=== PATIENT | female | born 1950 | race Caucasian/White ===

== ENCOUNTER 2022-08-08 17:01 | Inpatient (IN) | payer MEDICARE, OTHER ==
[2022-08-08] MEDS ORDERED: SODIUM CHLORIDE 0.9% 1,000 ML IV STA (17:12)
--- NOTE | 2022-08-08 17:15 | ED Physician Documentation ---
History of Present Illness - Stated complaint Stated Complaint: DROOPY/SLUMPED OVER - History obtained from History obtained from: Patient - Additonal information Additional information: Otherwise healthy 71-year-old woman has been feeling a little weak and dizzy since Friday morning, 2 days ago. Today she went to work and had a presyncopal episode. She notes that it gets worse if she is upright. No chest pain or trouble breathing. She has had some dark stools. No abdominal pain. For paramedics prehospital her blood pressure dropped down to 85/60 with orthostatic vital signs. Review of Systems Ten Systems: 10 systems reviewed and negative Constitutional: reports: Fatigue Cardiac: denies: Chest pain / pressure, Palpitations Respiratory: denies: Dyspnea, Cough GI: reports: Abdominal Pain. denies: Nausea, Vomiting PD PAST MEDICAL HISTORY - Past Medical History GI: GERD - Past Surgical History Past Surgical History: Yes /WIRE [employer]TER: Hysterectomy HEENT: Tonsil/Adenoidectomy - Present Medications Home Medications: Ambulatory Orders Medication Instructions Recorded Confirmed Esomeprazole Magnesium [Nexium] 0 mg PO DAILY 02/28/14 02/28/14 HYDROcod/ACETAM 5/325 [Vicodin 1 - 2 ea PO Q6H PRN #30 tablet 02/28/14 5/325] Zolmitriptan [Zomig] 2 mg PO Q2HR PRN 02/28/14 02/28/14 - Allergies Allergies/Adverse Reactions: Allergies Allergy/AdvReac Type Severity Reaction Status Date / Time No Known Drug Allergies Allergy Verified 02/28/14 16:36 - Social History Does the pt smoke?: No Smoking Status: Never smoker Does the pt drink ETOH?: No PD ED PE NORMAL - Vitals Vital signs reviewed: Yes - General General: Alert and oriented X 3, No acute distress - HEENT HEENT: PERRL, EOMI - Neck Neck: Supple, no meningeal sign, No bony TTP - Cardiac Cardiac: RRR, No murmur - Respiratory Respiratory: No respiratory distress, Clear bilaterally - Abdomen Abdomen: Normal bowel sounds, Soft, Non tender - Rectal Rectal: Other (dark stool sent for guaiac) - Back Back: No CVA TTP, No spinal TTP - Derm Derm: Normal color, Warm and dry - Extremities Extremities: No edema, No calf tenderness / cord - Neuro Neuro: Alert and oriented X 3, Normal speech Results - Vitals Vitals: Vital Signs - 24 hr 08/08/22 17:18 Temperature 36.9 C Heart Rate 108 H Respiratory 18 Rate Blood Pressure 129/77 O2 Saturation 99 Oxygen O2 Source Room air - EKG (time done) 1714 Rate: Rate (enter#) (104) Rhythm: Sinus tachycardia [place]: Normal Intervals: Normal ND QRS: Normal Ischemia: Non specific changes. No: ST depression - Labs Labs: Microbiology 08/08/22 17:55 Occult Blood - Final Stool Laboratory Tests 08/08/22 08/08/22 08/08/22 17:29 17:29 17:29 WBC 9.6 RBC 3.15 L Hgb 8.8 L Hct 27.7 L MCV 87.9 MCH 27.9 MCHC 31.8 L RDW 13.2 Plt Count 322 MPV 9.7 Neut # (Auto) 7.0 H Lymph # (Auto) 1.9 [place] # (Auto) 0.6 Eos # (Auto) 0.0 Baso # (Auto) 0.1 Absolute Nucleated RBC 0.00 Nucleated RBC % 0.0 PT 11.6 INR 1.0 Sodium Potassium Chloride Carbon Dioxide Anion Gap BUN Creatinine Estimated GFR (MDRD) Glucose Calcium Total Bilirubin AST ALT Alkaline Phosphatase Total Protein Albumin Globulin Albumin/Globulin Ratio Lipase Blood Type A NEGATIVE Blood Type Recheck Antibody Screen NEGATIVE 08/08/22 08/08/22 17:29 17:45 WBC RBC Hgb Hct MCV MCH MCHC RDW Plt Count MPV Neut # (Auto) Lymph # (Auto) [place] # (Auto) Eos # (Auto) Baso # (Auto) Absolute Nucleated RBC Nucleated RBC % PT INR Sodium 139 Potassium 4.1 Chloride 103 Carbon Dioxide 27 Anion Gap 9.0 BUN 38 H Creatinine 0.7 Estimated GFR (MDRD) 82 L Glucose 119 H Calcium 8.9 Total Bilirubin 0.6 AST 23 ALT 19 Alkaline Phosphatase 124 H Total Protein 6.0 L Albumin 3.2 Globulin 2.8 Albumin/Globulin Ratio 1.1 Lipase 34 Blood Type Blood Type Recheck A NEGATIVE Antibody Screen PD MEDICAL DECISION MAKING - ED course ED course: 71-year-old woman presents with acute presyncope and 2 days of symptoms of weakness. Found to be anemic and guaiac positive with soft blood pressure prior to arrival and borderline tachycardia. She is well-appearing here. We discussed this further. She has a long history of NSAID use and has required treatment for ulcer disease in the past and a partial gastrectomy for gastric outlet obstruction. Discussed case by phone with Dr. Jones, our on-call surgeon who will defer the case to Dr. Garcia who is on-call tomorrow. Will admit to the hospitalist after 7 PM shift change. Departure - Departure Disposition: ED Place in Observation Clinical Impression: Pre-syncope GI bleed Qualifiers: GI bleed type/associated pathology: unspecified gastrointestinal hemorrhage type Qualified Code(s): K92.2 - Gastrointestinal hemorrhage, unspecified Condition: Serious
[2022-08-08 17:39] LABS: BASOPHILS # (AUTO) 0.1 10^3/uL (0.0-0.1); BASOPHILS % (AUTO) 0.5 %; EOSINOPHILS % (AUTO) 0.4 %; HCT - HEMATOCRIT 27.7 % (37.0-47.0); HGB - HEMOGLOBIN 8.8 g/dL (12.0-16.0); LYMPHOCYTES # (AUTO) 1.9 10^3/uL (1.5-3.5); LYMPHOCYTES % (AUTO) 19.6 %; MEAN CORPUSCULAR HEMOGLOBIN 27.9 pg (27.0-31.0); MEAN CORPUSCULAR HGB CONC 31.8 g/dL (32.0-36.0); MEAN CORPUSCULAR VOLUME 87.9 fL (81.0-99.0); MEAN PLATELET VOLUME 9.7 fL (7.9-10.8); MONOCYTES # (AUTO) 0.6 10^3/uL (0.0-1.0); MONOCYTES % (AUTO) 6.4 %; NEUTROPHILS % (AUTO) 72.9 %; PLT - PLATELET COUNT 322 10^3/uL (130-450); RED BLOOD COUNT 3.15 10^6/uL (4.20-5.40); RED CELL DISTRIBUTION WIDTH 13.2 % (12.0-15.0); WHITE BLOOD COUNT 9.6 x10^3/uL (4.8-10.8)
[2022-08-08 17:45] LABS: PT - PROTHROMBIN TIME 11.6 secs (9.9-12.6)
[2022-08-08 17:52] LABS: ALBUMIN 3.2 g/dL (3.2-5.5); ALBUMIN/GLOBULIN RATIO 1.1 (1.0-2.2); BILIRUBIN,TOTAL 0.6 mg/dL (0.2-1.0); CALCIUM 8.9 mg/dL (8.5-10.3); CREATININE 0.7 mg/dL (0.4-1.0); POTASSIUM 4.1 mmol/L (3.5-5.0)
[2022-08-08] MEDS ORDERED: PANTOPRAZOLE 40 MG VIAL IVP STA (18:36)
--- NOTE | 2022-08-08 19:20 | HISTORY & PHYSICAL EXAMINATION ---
Chief Complaint - Chief Complaint Chief Complaint: Dizziness, Weakness History of Present Illness - Admitted From Admitted From:: ER - History Obtained From Records Reviewed: Yes History obtained from: Patient, chart, staff Exam Limitations: Remote consult - History of Present Illness HPI Comment/Other: 71 yo F with h/o PUD 10 years previously and PUD recurrence in 2014 requiring a partial gastrectomy for gastric outlet obstruction presented to the ER with c/o 2 day h/o weakness, dizziness. Yesterday, when pt got up to do chores, took garbage cans down the road, then when she walked back, she felt light-headed, sat in her car x 5 minutes, then went back to house. She went to work yesterday and felt okay. Today, she got up, did chores, went to work. At work, she felt dizzy and sat down, felt imbalance, leaned to the right, as her dizziness/light- headedness felt worse on sitting upright. Her colleague was concerned and called the ambulance. Pt did have c/o abdo pain 4 days ago, epigastric, resolved 2 days ago. Yesterday, she had dark, loose stools x 1. No N/V. No F/C, CP/SOB/cough. Pt has been taking Excedrin for muscle pains. Per Paramedics, BP okay with sitting, dropped to 85/60 with standing. In the ER, VSS, Guaiac +. History - Past Medical History Respiratory: reports: None Neuro: reports: None Endocrine/Autoimmune: reports: None GI: reports: GERD, Ulcers [employer]: reports: Fibroids : reports: None HEENT: reports: None Psych: reports: None Musculoskeletal: reports: Osteoarthritis Derm: reports: None MRSA Hx?: No - Past Surgical History General: reports: Gastric surgery /[employer] PROFESSIONAL: reports: Hysterectomy HEENT: reports: Tonsil/Adenoidectomy - Family & Social History Family History: Mother: Diabetes, Type 2 - Substance History Use: Uses substance without health or social issues: NONE Abuse: Recurrent use of substance despite neg consequences: NONE Dependence: Experiences withdrawal or developed tolerances: NONE - POLST POLST Status: Full Code Meds/Allgy - Home Medications Home Medications: Ambulatory Orders Medication Instructions Recorded Confirmed Esomeprazole Magnesium [Nexium] 0 mg PO DAILY 02/28/14 02/28/14 HYDROcod/ACETAM 5/325 [Vicodin 1 - 2 ea PO Q6H PRN #30 tablet 02/28/14 5/325] Zolmitriptan [Zomig] 2 mg PO Q2HR PRN 02/28/14 02/28/14 - Allergies Allergies/Adverse Reactions: Allergies Allergy/AdvReac Type Severity Reaction Status Date / Time No Known Drug Allergies Allergy Verified 02/28/14 16:36 Review of Systems - All Other Systems All Other Systems: reports: Reviewed and negative Exam - Vital Signs Reviewed Vital Signs: Yes Vital Signs: Vital Signs x48h Temp Pulse Resp BP Pulse Ox 08/08/22 17:18 36.9 C 108 H 18 129/77 99 - Physical Exam General Appearance: positive: No acute distress Eyes Bilateral: positive: Conjunctivae nml ENT: positive: Dry mucous membranes Respiratory: positive: No respiratory distress Cardiovascular: positive: Regular rate & rhythm Abdomen: positive: Non-tender, No distention Rectal: positive: Stool - heme POS (Per ER Provider) Extremities: positive: Full ROM, Nml appearance Neurologic/Psychiatric: positive: Oriented x3, Motor nml, Mood/affect nml Comments/Other: Completed exam by phone with help of RN, as video was not working. RN reported findings. Conclusion/Plan - Problem List (1) GI bleed Conclusion/Plan: -pt with h/o PUD and partial gastrectomy for gastric outlet obstruction from PUD 2014 -pt uses Excedrin -ER Provider D/W Dr. Jones, our on-call surgeon who will defer the case to Dr. Garcia who is on-call tomorrow. -IVF -Clear liquids until MN then NPO -Protonix IV -trend H/H, transfuse for Hgb<7 Qualifiers: GI bleed type/associated pathology: unspecified gastrointestinal hemorrhage type Qualified Code(s): K92.2 - Gastrointestinal hemorrhage, unspecified (2) Pre-syncope Conclusion/Plan: -most likely d/t GI Bleed -telemetry - Lab Results Fish Bones: 08/08/22 17:29 08/08/22 17:29 Core Measures - DVT/VTE - Prophylaxis VTE/DVT Device ordered at admit?: No Not Ordered - Medical Reason: Contraindicated (GI Bleed)
[2022-08-08] MEDS ORDERED: ACETAMINOPHEN 325 MG TABLET PO PRN (20:04)
[2022-08-08] MEDS ORDERED: ONDANSETRON 4 MG/2 ML VIAL IVP PRN (20:04)
[2022-08-08] MEDS ORDERED: ONDANSETRON ODT 4 MG TABLET TL PRN (20:04)
[2022-08-08 20:50] LABS: B. PARAPERTUSSIS- RESP PCR PAN NOT DETECTED; B. PERTUSSIS- RESP PCR PANEL NOT DETECTED; C. PNEUMONIAE- RESP PCR PANEL NOT DETECTED; CORONAVIRUS 229E-RESP PCR NOT DETECTED; CORONAVIRUS HKU1-RESP PCR NOT DETECTED; CORONAVIRUS NL63-RESP PCR NOT DETECTED; CORONAVIRUS OC43-RESP PCR NOT DETECTED; HUMAN METAPNEUMOVIRUS NOT DETECTED; INFLUENZA A- RESP PCR PANEL NOT DETECTED; INFLUENZA B - RESP PCR PANEL NOT DETECTED; M. PNEUMONIAE- RESP PCR PANEL NOT DETECTED; PARAINFLUENZA VIRUS 1 NOT DETECTED; PARAINFLUENZA VIRUS 2 NOT DETECTED; PARAINFLUENZA VIRUS 3 NOT DETECTED; PARAINFLUENZA VIRUS 4 NOT DETECTED; RHINOVIRUS/ENTEROVIRUS NOT DETECTED; RSV- RESP PCR PANEL NOT DETECTED; SARS-CoV-2 -RESP PCR PANEL NOT DETECTED
[2022-08-08] MEDS: PANTOPRAZOLE 40 MG VIAL IVP SCH (20:50)
[2022-08-08 20:51] LABS: BASOPHILS # (AUTO) 0.1 10^3/uL (0.0-0.1); BASOPHILS % (AUTO) 0.6 %; EOSINOPHILS % (AUTO) 0.2 %; HCT - HEMATOCRIT 24.8 % (37.0-47.0); HGB - HEMOGLOBIN 7.9 g/dL (12.0-16.0); LYMPHOCYTES % (AUTO) 23.4 %; MEAN CORPUSCULAR HEMOGLOBIN 27.9 pg (27.0-31.0); MEAN CORPUSCULAR HGB CONC 31.9 g/dL (32.0-36.0); MEAN CORPUSCULAR VOLUME 87.6 fL (81.0-99.0); MEAN PLATELET VOLUME 9.4 fL (7.9-10.8); MONOCYTES # (AUTO) 0.5 10^3/uL (0.0-1.0); MONOCYTES % (AUTO) 5.4 %; NEUTROPHILS # (AUTO) 6.1 10^3/uL (1.5-6.6); NEUTROPHILS % (AUTO) 70.3 %; PLT - PLATELET COUNT 272 10^3/uL (130-450); RED BLOOD COUNT 2.83 10^6/uL (4.20-5.40); RED CELL DISTRIBUTION WIDTH 13.2 % (12.0-15.0); WHITE BLOOD COUNT 8.6 x10^3/uL (4.8-10.8)
[2022-08-08 20:57] LABS: INR 1.1 (0.8-1.2); PT - PROTHROMBIN TIME 12.3 secs (9.9-12.6)
[2022-08-08] MEDS: SODIUM CHLORIDE 0.9% 1,000 ML IV SCH (20:58)
[2022-08-09] MEDS: SODIUM CHLORIDE FLUSH 0.9% 10 ML SYRINGE IVP SCH ×6 (00:05→20:59)
[2022-08-09 02:30] LABS: BASOPHILS % (AUTO) 0.5 %; EOSINOPHILS # (AUTO) 0.1 10^3/uL (0.0-0.7); EOSINOPHILS % (AUTO) 0.8 %; HCT - HEMATOCRIT 23.4 % (37.0-47.0); HGB - HEMOGLOBIN 7.6 g/dL (12.0-16.0); LYMPHOCYTES # (AUTO) 3.3 10^3/uL (1.5-3.5); LYMPHOCYTES % (AUTO) 41.8 %; MEAN CORPUSCULAR HEMOGLOBIN 28.7 pg (27.0-31.0); MEAN CORPUSCULAR HGB CONC 32.5 g/dL (32.0-36.0); MEAN CORPUSCULAR VOLUME 88.3 fL (81.0-99.0); MEAN PLATELET VOLUME 9.7 fL (7.9-10.8); MONOCYTES # (AUTO) 0.7 10^3/uL (0.0-1.0); MONOCYTES % (AUTO) 8.5 %; NEUTROPHILS # (AUTO) 3.8 10^3/uL (1.5-6.6); NEUTROPHILS % (AUTO) 48.1 %; PLT - PLATELET COUNT 257 10^3/uL (130-450); RED BLOOD COUNT 2.65 10^6/uL (4.20-5.40); RED CELL DISTRIBUTION WIDTH 13.3 % (12.0-15.0)
--- NOTE | 2022-08-09 06:17 | ED Physician Documentation ---
ED Addendum - Addendum Addendum: 08/09/22 06:16 Rapid response due to near-syncope. Patient was admitted yesterday afternoon for near-syncope associated with anemia, suspected GI bleeding (guaiac positive). Patient was being helped from bed to bathroom , became weak and rapidly was no longer able to support herself. She exhibited decreased level of consciousness and was noted to have bradycardia on monitor (pulse noted to be 30s bpm by nursing staff). She was returned to the bed, did not fall to ground. On my arri frank, patient is pale, opens eyes to verbal, responds slowly and quietly but appropriately. She is pale and mildly diaphoretic, BP 140s/70s , heart rate 110- 115. On stethoscopic cardiac auscultation, rate is tachycardic with regular rhythm and 2/6 HANNY at cardiac base/left sternal border. Within 2-3 minutes of my arrival, patient had returned to AAOx3 without specific intervention and vital signs remained stable. EKG and basic blood tests (cbc, bmp) as well as hs-cTn ordered. EKG is without concerning findings (95 BPM, NSR, PAC, normal axis, no ST elevation/depression). H/H unchanged from previous results (7.6 hgb) and normal hs-cTn
[2022-08-09 06:45] LABS: BASOPHILS # (AUTO) 0.1 10^3/uL (0.0-0.1); BASOPHILS % (AUTO) 0.7 %; EOSINOPHILS # (AUTO) 0.2 10^3/uL (0.0-0.7); EOSINOPHILS % (AUTO) 2.1 %; HCT - HEMATOCRIT 23.7 % (37.0-47.0); HGB - HEMOGLOBIN 7.6 g/dL (12.0-16.0); LYMPHOCYTES # (AUTO) 2.6 10^3/uL (1.5-3.5); LYMPHOCYTES % (AUTO) 34.5 %; MEAN CORPUSCULAR HEMOGLOBIN 28.4 pg (27.0-31.0); MEAN CORPUSCULAR HGB CONC 32.1 g/dL (32.0-36.0); MEAN CORPUSCULAR VOLUME 88.4 fL (81.0-99.0); MEAN PLATELET VOLUME 9.5 fL (7.9-10.8); MONOCYTES # (AUTO) 0.5 10^3/uL (0.0-1.0); MONOCYTES % (AUTO) 6.1 %; NEUTROPHILS # (AUTO) 4.3 10^3/uL (1.5-6.6); NEUTROPHILS % (AUTO) 56.2 %; PLT - PLATELET COUNT 264 10^3/uL (130-450); RED BLOOD COUNT 2.68 10^6/uL (4.20-5.40); RED CELL DISTRIBUTION WIDTH 13.5 % (12.0-15.0); WHITE BLOOD COUNT 7.6 x10^3/uL (4.8-10.8)
[2022-08-09 07:03] LABS: CALCIUM 8.4 mg/dL (8.5-10.3); CREATININE 0.7 mg/dL (0.4-1.0); POTASSIUM 3.4 mmol/L (3.5-5.0)
[2022-08-09] MEDS ORDERED: SODIUM CHLORIDE FLUSH 0.9% 10 ML SYRINGE IVP PRN (07:37)
[2022-08-09 08:24] LABS: BASOPHILS # (AUTO) 0.1 10^3/uL (0.0-0.1); BASOPHILS % (AUTO) 0.4 %; EOSINOPHILS % (AUTO) 0.3 %; HCT - HEMATOCRIT 24.5 % (37.0-47.0); HGB - HEMOGLOBIN 7.8 g/dL (12.0-16.0); LYMPHOCYTES # (AUTO) 1.9 10^3/uL (1.5-3.5); LYMPHOCYTES % (AUTO) 16.3 %; MEAN CORPUSCULAR HEMOGLOBIN 28.1 pg (27.0-31.0); MEAN CORPUSCULAR HGB CONC 31.8 g/dL (32.0-36.0); MEAN CORPUSCULAR VOLUME 88.1 fL (81.0-99.0); MEAN PLATELET VOLUME 9.5 fL (7.9-10.8); MONOCYTES # (AUTO) 0.7 10^3/uL (0.0-1.0); MONOCYTES % (AUTO) 5.7 %; NEUTROPHILS # (AUTO) 9.1 10^3/uL (1.5-6.6); PLT - PLATELET COUNT 275 10^3/uL (130-450); RED BLOOD COUNT 2.78 10^6/uL (4.20-5.40); RED CELL DISTRIBUTION WIDTH 13.5 % (12.0-15.0); WHITE BLOOD COUNT 11.9 x10^3/uL (4.8-10.8)
[2022-08-09] MEDS: POTASSIUM CHLOR 10 MEQ/100 ML 10 MEQ/100 ML BAG IV SCH ×4 (09:04→12:35)
[2022-08-09] MEDS: PANTOPRAZOLE 40 MG VIAL IVP SCH ×2 (09:04→20:59)
[2022-08-09 09:05] LABS: MAGNESIUM 1.7 mg/dL (1.7-2.8); PHOSPHORUS 2.2 mg/dL (2.5-4.6)
[2022-08-09] MEDS: SODIUM CHLORIDE FLUSH 0.9% 10 ML SYRINGE IVP PRN ×3 (09:12→21:10)
[2022-08-09] MEDS: SODIUM CHLORIDE 0.9% 1,000 ML IV SCH (09:47)
[2022-08-09] MEDS ORDERED: MAGNESIUM OXIDE 400 MG TABLET PO SCH (10:00)
[2022-08-09 10:47] LABS: CALCIUM, IONIZED 1.15 mmol/L (1.15-1.33); VBG PH 7.377 (7.31-7.41)
[2022-08-09] MEDS: NEUTRA-PHOS 250 MG TABLET PO SCH ×2 (10:57→12:37)
--- NOTE | 2022-08-09 13:32 | PHARMACY PROGRESS NOTE ---
- Best Possible Medication History Admit Date and Time: 08/09/22 0734 Processed by: Pharmacy Medication History completed: Yes Patient Interview: Completed (PT REPORTS NOT TAKING ANY PRESCRIPTION MEDS AT HOME. NEXIUM, VICODIN, AND ZOMIQ HAD BEEN STOPPED FOR SEVERAL YEARS.) As the person ultimately responsible for medication therapy, providers are able to order a medication from an existing home medication list in [facility] via the "Reconcile Routine" prior to Confirmation of that medication by technical sales support specialist. Such practice is discouraged except when the physician, in their clinical judgment, deems that a medical need exists for a medication without regard to previous use.
--- NOTE | 2022-08-09 13:32 | PROVIDER PROGRESS NOTE ---
Subjective - Subjective Pt reports feeling: Worse (Pt cannot remember getting up to go to BR at 0606, when she had syncope, while on telemetry. All she can remember is pain ion her knees, while on her knees on the ground, being held by nursing staff, helping to put her supine back in her bed.) Objective - Vital Signs/Intake & Output Reviewed Vital Signs: Yes Vital Signs: Vital Signs Temp Pulse Resp BP Pulse Ox 08/09/22 12:25 37.1 C 112 H 18 152/66 H 100 08/09/22 11:00 113 H 20 152/66 H 99 08/09/22 10:00 114 H 18 146/80 H 98 08/09/22 09:47 113 H 16 146/74 H 98 Intake & Output: Intake & Output 08/06/22 08/07/22 08/08/22 08/09/22 23:59 23:59 23:59 23:59 Intake Total 1017.5 1216.25 Output Total 500 Balance 1017.5 716.25 - Objective General Appearance: positive: No acute distress, Alert Eyes Bilateral: positive: Normal inspection, EOMI Neck: positive: Nml inspection, No JVD Respiratory: positive: No respiratory distress, Breath sounds nml Cardiovascular: positive: Regular rate & rhythm, Systolic murmur (Harsh, late peaking syst murmur, loudest at aortic area) Abdomen: positive: Non-tender, Nml bowel sounds, No distention Skin: positive: Warm, Dry Extremities: positive: Non-tender, No pedal edema Neurologic/Psychiatric: positive: Oriented x3, Motor nml - Lab Results Fish Bones: 08/09/22 14:23 08/09/22 14:39 Other Labs: Lab Results x24hrs 08/09/22 08/09/22 08/09/22 Range/Units 10:39 10:39 08:31 WBC (4.8-10.8) x10^3/uL RBC (4.20-5.40) 10^6/uL Hgb (12.0-16.0) g/dL Hct (37.0-47.0) % MCV (81.0-99.0) fL MCH (27.0-31.0) pg MCHC (32.0-36.0) g/dL RDW (12.0-15.0) % Plt Count (130-450) 10^3/uL MPV (7.9-10.8) fL Neut # (Auto) (1.5-6.6) 10^3/uL Lymph # (Auto) (1.5-3.5) 10^3/uL Starke # (Auto) (0.0-1.0) 10^3/uL Eos # (Auto) (0.0-0.7) 10^3/uL Baso # (Auto) (0.0-0.1) 10^3/uL Absolute Nucleated RBC x10^3/uL Nucleated RBC % /100WBC PT (9.9-12.6) secs INR (0.8-1.2) APTT (24.9-33.3) secs VBG pH 7.377 (7.31-7.41) Ionized Calcium 1.15 (1.15-1.33) mmol/L Sodium (135-145) mmol/L Potassium (3.5-5.0) mmol/L Chloride (101-111) mmol/L Carbon Dioxide (21-32) mmol/L Anion Gap (6-13) BUN (6-20) mg/dL Creatinine (0.4-1.0) mg/dL Estimated GFR (MDRD) (>89) Glucose (70-100) mg/dL Calcium (8.5-10.3) mg/dL Phosphorus (2.5-4.6) mg/dL Magnesium (1.7-2.8) mg/dL Total Bilirubin (0.2-1.0) mg/dL AST (10-42) IU/L ALT (10-60) IU/L Alkaline Phosphatase (42-121) IU/L Troponin I High Sens 19.3 H* (2.3-14.8) ng/L Total Protein (6.7-8.2) g/dL Albumin (3.2-5.5) g/dL Globulin (2.1-4.2) g/dL Albumin/Globulin Ratio (1.0-2.2) Lipase (22-51) U/L Nasal Adenovirus (PCR) Nasal B. parapertussis DNA (PCR) Nasal Coronavir 229E PCR Nasal Coronavir HKU1 PCR Nasal Coronavir NL63 PCR Nasal Coronavir OC43 PCR Nasal Enterovir/Rhinovir PCR Nasal Influenza B PCR Nasal Influenza A PCR Nasal Parainfluen 1 PCR Nasal Parainfluen 2 PCR Nasal Parainfluen 3 PCR Nasal Parainfluen 4 PCR Nasal RSV (PCR) Nasal Screen MRSA (PCR) NEGATIVE (NEGATIVE) Nasal B.pertussis DNA PCR Nasal C.pneumoniae (PCR) Jimi Human Metapneumo PCR Nasal M.pneumoniae (PCR) Nasal SARS-CoV-2 (PCR) Blood Type Blood Type Recheck Antibody Screen 08/09/22 08/09/22 08/09/22 Range/Units 08:15 07:53 07:53 WBC 11.9 H (4.8-10.8) x10^3/uL RBC 2.78 L (4.20-5.40) 10^6/uL Hgb 7.8 L (12.0-16.0) g/dL Hct 24.5 L (37.0-47.0) % MCV 88.1 (81.0-99.0) fL MCH 28.1 (27.0-31.0) pg MCHC 31.8 L (32.0-36.0) g/dL RDW 13.5 (12.0-15.0) % Plt Count 275 (130-450) 10^3/uL MPV 9.5 (7.9-10.8) fL Neut # (Auto) 9.1 H (1.5-6.6) 10^3/uL Lymph # (Auto) 1.9 (1.5-3.5) 10^3/uL Starke # (Auto) 0.7 (0.0-1.0) 10^3/uL Eos # (Auto) 0.0 (0.0-0.7) 10^3/uL Baso # (Auto) 0.1 (0.0-0.1) 10^3/uL Absolute Nucleated RBC 0.00 x10^3/uL Nucleated RBC % 0.0 /100WBC PT (9.9-12.6) secs INR (0.8-1.2) APTT (24.9-33.3) secs VBG pH (7.31-7.41) Ionized Calcium (1.15-1.33) mmol/L Sodium (135-145) mmol/L Potassium (3.5-5.0) mmol/L Chloride (101-111) mmol/L Carbon Dioxide (21-32) mmol/L Anion Gap (6-13) BUN (6-20) mg/dL Creatinine (0.4-1.0) mg/dL Estimated GFR (MDRD) (>89) Glucose (70-100) mg/dL Calcium (8.5-10.3) mg/dL Phosphorus 2.2 L (2.5-4.6) mg/dL Magnesium 1.7 (1.7-2.8) mg/dL Total Bilirubin (0.2-1.0) mg/dL AST (10-42) IU/L ALT (10-60) IU/L Alkaline Phosphatase (42-121) IU/L Troponin I High Sens 14.8 (2.3-14.8) ng/L Total Protein (6.7-8.2) g/dL Albumin (3.2-5.5) g/dL Globulin (2.1-4.2) g/dL Albumin/Globulin Ratio (1.0-2.2) Lipase (22-51) U/L Nasal Adenovirus (PCR) Nasal B. parapertussis DNA (PCR) Nasal Coronavir 229E PCR Nasal Coronavir HKU1 PCR Nasal Coronavir NL63 PCR Nasal Coronavir OC43 PCR Nasal Enterovir/Rhinovir PCR Nasal Influenza B PCR Nasal Influenza A PCR Nasal Parainfluen 1 PCR Nasal Parainfluen 2 PCR Nasal Parainfluen 3 PCR Nasal Parainfluen 4 PCR Nasal RSV (PCR) Nasal Screen MRSA (PCR) (NEGATIVE) Nasal B.pertussis DNA PCR Nasal C.pneumoniae (PCR) Jimi Human Metapneumo PCR Nasal M.pneumoniae (PCR) Nasal SARS-CoV-2 (PCR) Blood Type Blood Type Recheck Antibody Screen 08/09/22 08/09/22 08/09/22 Range/Units 06:40 06:40 06:40 WBC 7.6 (4.8-10.8) x10^3/uL RBC 2.68 L (4.20-5.40) 10^6/uL Hgb 7.6 L (12.0-16.0) g/dL Hct 23.7 L (37.0-47.0) % MCV 88.4 (81.0-99.0) fL MCH 28.4 (27.0-31.0) pg MCHC 32.1 (32.0-36.0) g/dL RDW 13.5 (12.0-15.0) % Plt Count 264 (130-450) 10^3/uL MPV 9.5 (7.9-10.8) fL Neut # (Auto) 4.3 (1.5-6.6) 10^3/uL Lymph # (Auto) 2.6 (1.5-3.5) 10^3/uL Starke # (Auto) 0.5 (0.0-1.0) 10^3/uL Eos # (Auto) 0.2 (0.0-0.7) 10^3/uL Baso # (Auto) 0.1 (0.0-0.1) 10^3/uL Absolute Nucleated RBC 0.00 x10^3/uL Nucleated RBC % 0.0 /100WBC PT (9.9-12.6) secs INR (0.8-1.2) APTT (24.9-33.3) secs VBG pH (7.31-7.41) Ionized Calcium (1.15-1.33) mmol/L Sodium 140 (135-145) mmol/L Potassium 3.4 L (3.5-5.0) mmol/L Chloride 108 (101-111) mmol/L Carbon Dioxide 24 (21-32) mmol/L Anion Gap 8.0 (6-13) BUN 30 H (6-20) mg/dL Creatinine 0.7 (0.4-1.0) mg/dL Estimated GFR (MDRD) 82 L (>89) Glucose 162 H (70-100) mg/dL Calcium 8.4 L (8.5-10.3) mg/dL Phosphorus (2.5-4.6) mg/dL Magnesium (1.7-2.8) mg/dL Total Bilirubin (0.2-1.0) mg/dL AST (10-42) IU/L ALT (10-60) IU/L Alkaline Phosphatase (42-121) IU/L Troponin I High Sens 11.2 (2.3-14.8) ng/L Total Protein (6.7-8.2) g/dL Albumin (3.2-5.5) g/dL Globulin (2.1-4.2) g/dL Albumin/Globulin Ratio (1.0-2.2) Lipase (22-51) U/L Nasal Adenovirus (PCR) Nasal B. parapertussis DNA (PCR) Nasal Coronavir 229E PCR Nasal Coronavir HKU1 PCR Nasal Coronavir NL63 PCR Nasal Coronavir OC43 PCR Nasal Enterovir/Rhinovir PCR Nasal Influenza B PCR Nasal Influenza A PCR Nasal Parainfluen 1 PCR Nasal Parainfluen 2 PCR Nasal Parainfluen 3 PCR Nasal Parainfluen 4 PCR Nasal RSV (PCR) Nasal Screen MRSA (PCR) (NEGATIVE) Nasal B.pertussis DNA PCR Nasal C.pneumoniae (PCR) Jimi Human Metapneumo PCR Nasal M.pneumoniae (PCR) Nasal SARS-CoV-2 (PCR) Blood Type Blood Type Recheck Antibody Screen 08/09/22 08/09/22 08/08/22 Range/Units 02:20 02:20 20:44 WBC 8.0 8.6 (4.8-10.8) x10^3/uL RBC 2.65 L 2.83 L (4.20-5.40) 10^6/uL Hgb 7.6 L 7.9 L (12.0-16.0) g/dL Hct 23.4 L 24.8 L (37.0-47.0) % MCV 88.3 87.6 (81.0-99.0) fL MCH 28.7 27.9 (27.0-31.0) pg MCHC 32.5 31.9 L (32.0-36.0) g/dL RDW 13.3 13.2 (12.0-15.0) % Plt Count 257 272 (130-450) 10^3/uL MPV 9.7 9.4 (7.9-10.8) fL Neut # (Auto) 3.8 6.1 (1.5-6.6) 10^3/uL Lymph # (Auto) 3.3 2.0 (1.5-3.5) 10^3/uL Starke # (Auto) 0.7 0.5 (0.0-1.0) 10^3/uL Eos # (Auto) 0.1 0.0 (0.0-0.7) 10^3/uL Baso # (Auto) 0.0 0.1 (0.0-0.1) 10^3/uL Absolute Nucleated RBC 0.00 0.00 x10^3/uL Nucleated RBC % 0.0 0.0 /100WBC PT (9.9-12.6) secs INR (0.8-1.2) APTT 26.2 (24.9-33.3) secs VBG pH (7.31-7.41) Ionized Calcium (1.15-1.33) mmol/L Sodium (135-145) mmol/L Potassium (3.5-5.0) mmol/L Chloride (101-111) mmol/L Carbon Dioxide (21-32) mmol/L Anion Gap (6-13) BUN (6-20) mg/dL Creatinine (0.4-1.0) mg/dL Estimated GFR (MDRD) (>89) Glucose (70-100) mg/dL Calcium (8.5-10.3) mg/dL Phosphorus (2.5-4.6) mg/dL Magnesium (1.7-2.8) mg/dL Total Bilirubin (0.2-1.0) mg/dL AST (10-42) IU/L ALT (10-60) IU/L Alkaline Phosphatase (42-121) IU/L Troponin I High Sens (2.3-14.8) ng/L Total Protein (6.7-8.2) g/dL Albumin (3.2-5.5) g/dL Globulin (2.1-4.2) g/dL Albumin/Globulin Ratio (1.0-2.2) Lipase (22-51) U/L Nasal Adenovirus (PCR) Nasal B. parapertussis DNA (PCR) Nasal Coronavir 229E PCR Nasal Coronavir HKU1 PCR Nasal Coronavir NL63 PCR Nasal Coronavir OC43 PCR Nasal Enterovir/Rhinovir PCR Nasal Influenza B PCR Nasal Influenza A PCR Nasal Parainfluen 1 PCR Nasal Parainfluen 2 PCR Nasal Parainfluen 3 PCR Nasal Parainfluen 4 PCR Nasal RSV (PCR) Nasal Screen MRSA (PCR) (NEGATIVE) Nasal B.pertussis DNA PCR Nasal C.pneumoniae (PCR) Jimi Human Metapneumo PCR Nasal M.pneumoniae (PCR) Nasal SARS-CoV-2 (PCR) Blood Type Blood Type Recheck Antibody Screen 08/08/22 08/08/22 08/08/22 Range/Units 20:44 18:50 17:45 WBC (4.8-10.8) x10^3/uL RBC (4.20-5.40) 10^6/uL Hgb (12.0-16.0) g/dL Hct (37.0-47.0) % MCV (81.0-99.0) fL MCH (27.0-31.0) pg MCHC (32.0-36.0) g/dL RDW (12.0-15.0) % Plt Count (130-450) 10^3/uL MPV (7.9-10.8) fL Neut # (Auto) (1.5-6.6) 10^3/uL Lymph # (Auto) (1.5-3.5) 10^3/uL Starke # (Auto) (0.0-1.0) 10^3/uL Eos # (Auto) (0.0-0.7) 10^3/uL Baso # (Auto) (0.0-0.1) 10^3/uL Absolute Nucleated RBC x10^3/uL Nucleated RBC % /100WBC PT 12.3 (9.9-12.6) secs INR 1.1 (0.8-1.2) APTT (24.9-33.3) secs VBG pH (7.31-7.41) Ionized Calcium (1.15-1.33) mmol/L Sodium (135-145) mmol/L Potassium (3.5-5.0) mmol/L Chloride (101-111) mmol/L Carbon Dioxide (21-32) mmol/L Anion Gap (6-13) BUN (6-20) mg/dL Creatinine (0.4-1.0) mg/dL Estimated GFR (MDRD) (>89) Glucose (70-100) mg/dL Calcium (8.5-10.3) mg/dL Phosphorus (2.5-4.6) mg/dL Magnesium (1.7-2.8) mg/dL Total Bilirubin (0.2-1.0) mg/dL AST (10-42) IU/L ALT (10-60) IU/L Alkaline Phosphatase (42-121) IU/L Troponin I High Sens (2.3-14.8) ng/L Total Protein (6.7-8.2) g/dL Albumin (3.2-5.5) g/dL Globulin (2.1-4.2) g/dL Albumin/Globulin Ratio (1.0-2.2) Lipase (22-51) U/L Nasal Adenovirus (PCR) NOT DETECTED Nasal B. parapertussis DNA (PCR) NOT DETECTED Nasal Coronavir 229E PCR NOT DETECTED Nasal Coronavir HKU1 PCR NOT DETECTED Nasal Coronavir NL63 PCR NOT DETECTED Nasal Coronavir OC43 PCR NOT DETECTED Nasal Enterovir/Rhinovir PCR NOT DETECTED Nasal Influenza B PCR NOT DETECTED Nasal Influenza A PCR NOT DETECTED Nasal Parainfluen 1 PCR NOT DETECTED Nasal Parainfluen 2 PCR NOT DETECTED Nasal Parainfluen 3 PCR NOT DETECTED Nasal Parainfluen 4 PCR NOT DETECTED Nasal RSV (PCR) NOT DETECTED Nasal Screen MRSA (PCR) (NEGATIVE) Nasal B.pertussis DNA PCR NOT DETECTED Nasal C.pneumoniae (PCR) NOT DETECTED Jimi Human Metapneumo PCR NOT DETECTED Nasal M.pneumoniae (PCR) NOT DETECTED Nasal SARS-CoV-2 (PCR) NOT DETECTED Blood Type Blood Type Recheck A NEGATIVE Antibody Screen 08/08/22 08/08/22 08/08/22 Range/Units 17:29 17:29 17:29 WBC 9.6 (4.8-10.8) x10^3/uL RBC 3.15 L (4.20-5.40) 10^6/uL Hgb 8.8 L (12.0-16.0) g/dL Hct 27.7 L (37.0-47.0) % MCV 87.9 (81.0-99.0) fL MCH 27.9 (27.0-31.0) pg MCHC 31.8 L (32.0-36.0) g/dL RDW 13.2 (12.0-15.0) % Plt Count 322 (130-450) 10^3/uL MPV 9.7 (7.9-10.8) fL Neut # (Auto) 7.0 H (1.5-6.6) 10^3/uL Lymph # (Auto) 1.9 (1.5-3.5) 10^3/uL Starke # (Auto) 0.6 (0.0-1.0) 10^3/uL Eos # (Auto) 0.0 (0.0-0.7) 10^3/uL Baso # (Auto) 0.1 (0.0-0.1) 10^3/uL Absolute Nucleated RBC 0.00 x10^3/uL Nucleated RBC % 0.0 /100WBC PT 11.6 (9.9-12.6) secs INR 1.0 (0.8-1.2) APTT (24.9-33.3) secs VBG pH (7.31-7.41) Ionized Calcium (1.15-1.33) mmol/L Sodium 139 (135-145) mmol/L Potassium 4.1 (3.5-5.0) mmol/L Chloride 103 (101-111) mmol/L Carbon Dioxide 27 (21-32) mmol/L Anion Gap 9.0 (6-13) BUN 38 H (6-20) mg/dL Creatinine 0.7 (0.4-1.0) mg/dL Estimated GFR (MDRD) 82 L (>89) Glucose 119 H (70-100) mg/dL Calcium 8.9 (8.5-10.3) mg/dL Phosphorus (2.5-4.6) mg/dL Magnesium (1.7-2.8) mg/dL Total Bilirubin 0.6 (0.2-1.0) mg/dL AST 23 (10-42) IU/L ALT 19 (10-60) IU/L Alkaline Phosphatase 124 H (42-121) IU/L Troponin I High Sens (2.3-14.8) ng/L Total Protein 6.0 L (6.7-8.2) g/dL Albumin 3.2 (3.2-5.5) g/dL Globulin 2.8 (2.1-4.2) g/dL Albumin/Globulin Ratio 1.1 (1.0-2.2) Lipase 34 (22-51) U/L Nasal Adenovirus (PCR) Nasal B. parapertussis DNA (PCR) Nasal Coronavir 229E PCR Nasal Coronavir HKU1 PCR Nasal Coronavir NL63 PCR Nasal Coronavir OC43 PCR Nasal Enterovir/Rhinovir PCR Nasal Influenza B PCR Nasal Influenza A PCR Nasal Parainfluen 1 PCR Nasal Parainfluen 2 PCR Nasal Parainfluen 3 PCR Nasal Parainfluen 4 PCR Nasal RSV (PCR) Nasal Screen MRSA (PCR) (NEGATIVE) Nasal B.pertussis DNA PCR Nasal C.pneumoniae (PCR) Jimi Human Metapneumo PCR Nasal M.pneumoniae (PCR) Nasal SARS-CoV-2 (PCR) Blood Type Blood Type Recheck Antibody Screen 08/08/22 Range/Units 17:29 WBC (4.8-10.8) x10^3/uL RBC (4.20-5.40) 10^6/uL Hgb (12.0-16.0) g/dL Hct (37.0-47.0) % MCV (81.0-99.0) fL MCH (27.0-31.0) pg MCHC (32.0-36.0) g/dL RDW (12.0-15.0) % Plt Count (130-450) 10^3/uL MPV (7.9-10.8) fL Neut # (Auto) (1.5-6.6) 10^3/uL Lymph # (Auto) (1.5-3.5) 10^3/uL Starke # (Auto) (0.0-1.0) 10^3/uL Eos # (Auto) (0.0-0.7) 10^3/uL Baso # (Auto) (0.0-0.1) 10^3/uL Absolute Nucleated RBC x10^3/uL Nucleated RBC % /100WBC PT (9.9-12.6) secs INR (0.8-1.2) APTT (24.9-33.3) secs VBG pH (7.31-7.41) Ionized Calcium (1.15-1.33) mmol/L Sodium (135-145) mmol/L Potassium (3.5-5.0) mmol/L Chloride (101-111) mmol/L Carbon Dioxide (21-32) mmol/L Anion Gap (6-13) BUN (6-20) mg/dL Creatinine (0.4-1.0) mg/dL Estimated GFR (MDRD) (>89) Glucose (70-100) mg/dL Calcium (8.5-10.3) mg/dL Phosphorus (2.5-4.6) mg/dL Magnesium (1.7-2.8) mg/dL Total Bilirubin (0.2-1.0) mg/dL AST (10-42) IU/L ALT (10-60) IU/L Alkaline Phosphatase (42-121) IU/L Troponin I High Sens (2.3-14.8) ng/L Total Protein (6.7-8.2) g/dL Albumin (3.2-5.5) g/dL Globulin (2.1-4.2) g/dL Albumin/Globulin Ratio (1.0-2.2) Lipase (22-51) U/L Nasal Adenovirus (PCR) Nasal B. parapertussis DNA (PCR) Nasal Coronavir 229E PCR Nasal Coronavir HKU1 PCR Nasal Coronavir NL63 PCR Nasal Coronavir OC43 PCR Nasal Enterovir/Rhinovir PCR Nasal Influenza B PCR Nasal Influenza A PCR Nasal Parainfluen 1 PCR Nasal Parainfluen 2 PCR Nasal Parainfluen 3 PCR Nasal Parainfluen 4 PCR Nasal RSV (PCR) Nasal Screen MRSA (PCR) (NEGATIVE) Nasal B.pertussis DNA PCR Nasal C.pneumoniae (PCR) Jimi Human Metapneumo PCR Nasal M.pneumoniae (PCR) Nasal SARS-CoV-2 (PCR) Blood Type A NEGATIVE Blood Type Recheck Antibody Screen NEGATIVE Assessment/Plan - Problem List (1) Syncope Impression: Today I reviewed her 2 recent presyncopal episodes: 1 was while she was walking to her car, she felt her legs were "jelly like" and she was dizzy. She sat in the drivers seat of the car for 5 to 8 minutes before she felt normal and she could drive. Later yesterday while at work sitting at her computer she again felt dizzy and put her head down then asked a colleague if she looks pale. She said she "wished she could have lie down entirely supine". In her remote history there was 1 other time while digging in her garden that she laid prone for about 5 minutes before she had the strength to stand up and walk to the house. There is no family history of people with pacemakers. (2) Complete heart block Impression: During her syncopal event hourly manager showed sinus tachycardia changing to second-degree heart block with 2-1 block then complete heart block with a ventricular rate of 30 then recovery to second-degree heart block then back to sinus rhythm. Plan: The patient will be made an Inpatient. Transferred to ICU. Put on external patches and bedside portable pacemaker on standby No EGD to be done here because a vaso vagal event may give her recurrence of high grade heart block. Permanent pacemaker implant is indicated. The patient had this described and told about a pacemaker by me, and she is agreeable. Transfer the patient to the facility with higher level of care (3) Heart murmur Impression: She has never been told she has a heart murmur. Her murmur is most consistent with aortic stenosis, which also would give her a predisposition to syncope. Plan: Echocardiogram ordered (but we have no Manual Training Teacher until , today is Fri ). Pt needs transfer to facility with higher level of care (4) GI bleed Impression: Patient had a bleeding gastric ulcer 10 years ago and 5 years ago. She did have a partial gastrectomy because of that. She says she was H. pylori negative. She thinks it all happened because of "stress". The patient now has had 3 black tarry stool, after testing heme positive from a rectal exam guaiac card done in ED. Plan: Remain in the ICU. Follow H/H every 6 hours. Protonix 40 IV twice daily was empirically ordered by the telemedicine admitting doctor. Will also add sucralfate. Diet will be just clear liquids. Prefer that her EGD be done at a facility with higher level of care because of her third-degree heart block. Qualifiers: GI bleed type/associated pathology: unspecified gastrointestinal hemorrhage type Qualified Code(s): K92.2 - Gastrointestinal hemorrhage, unspecified (5) Anemia Impression: GI blood loss is the cause Plan: Remain in the ICU. Follow H/H every 6 hours. Will order a stat type and crossmatch and have 2 units ready for transfusion (6) Melena Impression: Black tarry stools have now been witnessed 3 times since she was first in the ED. Plan: Will manage as above CRITICAL CARE TIME SPENT: 60 MIN (Evaluating her telemetry strip, reviewing the repeat EKG done after her syncope, interviewing the patient regarding details of her presyncope and her family history, examining the patient, adjusting her medications, calling facilities to have her accepted for transfer out)
[2022-08-09 14:31] LABS: BASOPHILS % (AUTO) 0.3 %; EOSINOPHILS % (AUTO) 0.1 %; HCT - HEMATOCRIT 24.9 % (37.0-47.0); LYMPHOCYTES # (AUTO) 1.7 10^3/uL (1.5-3.5); LYMPHOCYTES % (AUTO) 15.1 %; MEAN CORPUSCULAR HEMOGLOBIN 28.7 pg (27.0-31.0); MEAN CORPUSCULAR HGB CONC 32.1 g/dL (32.0-36.0); MEAN CORPUSCULAR VOLUME 89.2 fL (81.0-99.0); MEAN PLATELET VOLUME 9.6 fL (7.9-10.8); MONOCYTES # (AUTO) 0.5 10^3/uL (0.0-1.0); MONOCYTES % (AUTO) 4.7 %; NEUTROPHILS # (AUTO) 8.9 10^3/uL (1.5-6.6); NEUTROPHILS % (AUTO) 79.4 %; PLT - PLATELET COUNT 287 10^3/uL (130-450); RED BLOOD COUNT 2.79 10^6/uL (4.20-5.40); RED CELL DISTRIBUTION WIDTH 13.5 % (12.0-15.0); WHITE BLOOD COUNT 11.2 x10^3/uL (4.8-10.8)
[2022-08-09] MEDS: SUCRALFATE 1 GM/10 ML UDC PO SCH ×2 (16:30→20:59)
--- NOTE | 2022-08-09 19:26 | Discharge Plan ---
Discharge Plan Problem Reviewed?: Yes Disposition: 02 Transfer Acute Care Hosp Condition: Serious Instruction Topics: Pantoprazole injection, Sucralfate oral suspension No Smoking: If you smoke, Please STOP! Call for help.
[2022-08-09 20:08] LABS: HCT - HEMATOCRIT 26.4 % (37.0-47.0); HGB - HEMOGLOBIN 8.6 g/dL (12.0-16.0)
[2022-08-09 22:35] VITALS: BP 143/80
--- NOTE | 2022-08-10 16:21 | DISCHARGE SUMMARY ---
Discharge Summary Admit Date: 08/08/22 Discharge Date: 08/09/22 Discharging Provider: Nu Matos MD Primary Care Provider: Bereket Albarran DO ([facility]) Code Status: Attempt Resuscitation Condition at Discharge: Serious Discharge Disposition: 02 Transfer Acute Care Hosp - DIAGNOSES Discharge Diagnoses with Status of Each Condition: 1. Syncope 2. Intermittent second-degree heart block alternating with complete heart block 3. Probable aortic stenosis 4. Upper GI bleed 5. Acute blood loss anemia - HPI History of Present Illness: Per the Telemed admission MD: 71 yo F with h/o PUD 10 years previously and PUD recurrence in 2014 requiring a partial gastrectomy for gastric outlet obstruction presented to the ER with c/o 2 day h/o weakness, dizziness. Yesterday, when pt got up to do chores, took garbage cans down the road, then when she walked back, she felt light-headed, sat in her car x 5 minutes, then went back to house. She went to work yesterday and felt okay. Today, she got up, did chores, went to work. At work, she felt dizzy and sat down, felt imbalance, leaned to the right, as her dizziness/light- headedness felt worse on sitting upright. Her colleague was concerned and called the ambulance. Pt did have c/o abdo pain 4 days ago, epigastric, resolved 2 days ago. Yesterday, she had dark, loose stools x 1. No N/V. No F/C, CP/SOB/cough. Pt has been taking Excedrin for muscle pains. Per Paramedics, BP okay with sitting, dropped to 85/60 with standing. In the ER, VSS, Guaiac +. - Past Medical History Respiratory: reports: None Neuro: reports: None Endocrine/Autoimmune: reports: None GI: reports: GERD, Ulcers LICENSED MENTAL HEALTH COUNSELOR: reports: Fibroids : reports: None HEENT: reports: None Psych: reports: None Musculoskeletal: reports: Osteoarthritis Derm: reports: None MRSA Hx?: No - Past Surgical History General: reports: Gastric surgery /LICENSED MENTAL HEALTH COUNSELOR: reports: Hysterectomy HEENT: reports: Tonsil/Adenoidectomy - CONSULTS | PROCEDURES Procedures: Transfusion of 2 units of packed cells - HOSPITAL COURSE Hospital Course: After overnight admission, the patient got up to go to the bathroom at around 6 in the morning. She had syncope while on telemetry and all she could remember was pain in her knees, kneeling on the ground, being held by nursing staff and being helped to go back to bed. The hospitalist on service reviewed her 2 recent presyncopal episodes: 1 was while she was walking to her car, she felt her legs were "jelly like" and she was dizzy. She sat in the drivers seat of the car for 5 to 8 minutes before she felt normal and she could drive. Later yesterday while at work sitting at her computer she again felt dizzy and put her head down then asked a colleague if she looks pale. She said she "wished she could have lie down entirely supine". In her remote history there was 1 other time while digging in her garden that she laid prone for about 5 minutes before she had the strength to stand up and walk to the house. There is no family history of people with pacemakers. During her syncopal event after school tutor showed sinus tachycardia changing to second-degree heart block with 2-1 block then complete heart block with a ventricular rate of 30 then recovery to second-degree heart block then back to sinus rhythm. She was transferred to the ICU. External patches were placed and bedside portable pacemaker was made available. On examination she had a murmur consistent with aortic stenosis and an echocardiogram would be necessary. Aortic stenosis can be associated with syncope and heart block. But we do not have telemetry until August 13. Patient had a bleeding gastric ulcer 10 years ago and 5 years ago. She did have a partial gastrectomy because of that. She says she was H. pylori negative. She thinks it all happened because of "stress". The patient now has had 3 black tarry stool, after testing heme positive from a rectal exam guaiac card done in ED. Protonix was started by the admitting hospitalist, she was kept on clear liquids, and hemoglobin was 7.9 on admission. Because of syncope, low blood pressure 2 units of packed cells were transfused and at the time of discharge hemoglobin was 8.6. She will need an EGD but cannot be done here because of her heart block. Again she needs transfer to higher level of care. She was accepted by and transferred to [facility] in [place], part of [facility] system. She went via ALS. There is no discharge examination. I am the hospitalist coming on service the next day and she was transferred last night. Telemedicine was on last night but they were unable to examine her before she was discharged. - ALLERGIES Allergies/Adverse Reactions: Allergies Allergy/AdvReac Type Severity Reaction Status Date / Time No Known Drug Allergies Allergy Verified 02/28/14 16:36 - MEDICATIONS Home Medications: Ambulatory Orders Medication Instructions Recorded Confirmed Cholecalciferol (Vitamin D3) 62.5 mcg PO DAILY 08/09/22 08/09/22 [Vitamin D3] Cyanocobalamin (Vitamin B-12) 5,000 mcg PO DAILY 08/09/22 08/09/22 [Vitamin B12] - LABS Result Diagrams: 08/09/22 20:01 08/09/22 14:39
== END 2022-08-09 22:20 | disposition short-term general hospital (02) | DRG 378 ==
LOC: EDUNIT# → ED 17:01 → MS2 20:03 → OBSVTOIN 08-09 07:34 → ICU 08-09 08:53
PROVIDERS: ADMIT Internal Medicine; ATTEND Specialist
PROC: 30233N1 Transfusion of Nonautologous Red Blood Cells into Peripheral Vein, Percutaneous Approach (ICD-10-PCS; principal; 2022-08-09)
DX: K92.2 Gastrointestinal hemorrhage, unspecified (principal); D64.9 Anemia, unspecified; R00.0 Tachycardia, unspecified; K92.1 Melena; Z20.822 Contact with and (suspected) exposure to COVID-19; D62 Acute posthemorrhagic anemia; I44.2 Atrioventricular block, complete; I35.0 Nonrheumatic aortic (valve) stenosis; K21.9 Gastro-esophageal reflux disease without esophagitis; M19.90 Unspecified osteoarthritis, unspecified site; R55 Syncope and collapse; Z90.49 Acquired absence of other specified parts of digestive tract; Z90.710 Acquired absence of both cervix and uterus
CPT/HCPCS: 36415; 80048; 80053; 82272; 82330; 83690; 83735; 84100; 84132; 84484; 85014; 85018; 85025; 85610; 85730; 86850; 86900; 86901; 86920; 87150; 87633; 93005; 96374; 99284; 99285; A9270; P9016

== ENCOUNTER 2022-10-03 18:24 | Emergency (ER) | payer MEDICARE, OTHER ==
[2022-10-03] MEDS ORDERED: ONDANSETRON 4 MG/2 ML VIAL IVP STA (19:12)
[2022-10-03] MEDS ORDERED: SODIUM CHLORIDE 0.9% 1,000 ML IV STA (19:12)
--- NOTE | 2022-10-03 19:13 | ED Physician Documentation ---
PD HPI NVD - Stated complaint Stated Complaint: VOMITING - Chief complaint Chief Complaint: Abd Pain - History obtained from History obtained from: Patient, Friend - Additonal information Additional information: 71-year-old woman who I admitted for an upper GI bleed in middle of July. She had a complicated course, here she developed secondary heart block and was subsequently sent up to [place]. The secondary heart block was not corroborated there and they had difficulty doing an EGD. Subsequently she had a watershed stroke with left-sided deficits while there and eventually went to [facility] where she had her last CBC with hemoglobin in the high eights per her friend at the bedside. Now she is in assisted living with home health, PT, OT. Starting this morning at 3 AM she developed vomiting and diarrhea. Because of that she has developed increasing weakness. She denies abdominal pain. No fevers. No sick contacts that she knows of. Review of Systems Constitutional: denies: Fever, Chills Nose: denies: Rhinorrhea / runny nose, Congestion Cardiac: denies: Chest pain / pressure, Palpitations Respiratory: denies: Dyspnea, Cough GI: reports: Nausea, Vomiting, Diarrhea. denies: Abdominal Pain PD PAST MEDICAL HISTORY - Past Medical History Respiratory: None Neuro: None Endocrine/Autoimmune: None GI: GERD, Ulcers LEARNING COORDINATOR: Fibroids : None HEENT: None Psych: None Musculoskeletal: Osteoarthritis Derm: None - Past Surgical History Past Surgical History: Yes General: Gastric surgery /LEARNING COORDINATOR: Hysterectomy HEENT: Tonsil/Adenoidectomy - Present Medications Home Medications: Ambulatory Orders Medication Instructions Recorded Confirmed Amlodipine Besylate [Norvasc] 2.5 mg PO 10/03/22 Aspirin EC [Ecotrin] 81 mg PO DAILY 10/03/22 10/03/22 Atorvastatin Calcium 40 mg PO 10/03/22 Citalopram [CeleXA] 20 mg PO DAILY 10/03/22 10/03/22 Folic Acid 1 mg PO DAILY 10/03/22 10/03/22 Multivitamin 1 each PO DAILY 10/03/22 10/03/22 Ondansetron Odt [Zofran] 4 mg TL Q6H PRN #10 tablet 10/03/22 Pantoprazole Sodium 40 mg PO BID 10/03/22 10/03/22 Thiamine [Vitamin B-1] 100 mg PO DAILY 10/03/22 10/03/22 lidocaine HCL [Lidaflex] 1 each TP 10/03/22 traZODone [Desyrel] 25 mg PO HS 10/03/22 10/03/22 - Allergies Allergies/Adverse Reactions: Allergies Allergy/AdvReac Type Severity Reaction Status Date / Time NSAIDS (Non-Steroidal AdvReac Emesis Verified 10/03/22 18:37 Anti-Inflamma - Social History Does the pt smoke?: No Smoking Status: Never smoker Does the pt drink ETOH?: No - POLST POLST Status: Full Code PD ED PE NORMAL - Vitals Vital signs reviewed: Yes (Resting tachycardia) - General General: Alert and oriented X 3, No acute distress - HEENT HEENT: PERRL, EOMI - Neck Neck: Supple, no meningeal sign, No bony TTP - Cardiac Cardiac: RRR, No murmur - Respiratory Respiratory: No respiratory distress, Clear bilaterally - Abdomen Abdomen: Non tender, Other (Hyperactive bowel sounds that be) - Back Back: No CVA TTP, No spinal TTP - Derm Derm: Normal color, Warm and dry - Extremities Extremities: No edema, No calf tenderness / cord - Neuro Neuro: Alert and oriented X 3, Normal speech Results - Vitals Vitals: Vital Signs - 24 hr 10/03/22 10/03/22 18:31 19:14 Temperature 36.3 C L Heart Rate 115 H 105 H Respiratory 18 16 Rate Blood Pressure 121/61 120/71 O2 Saturation 96 98 Oxygen O2 Source Room air - Labs Labs: Laboratory Tests 10/03/22 10/03/22 19:28 19:28 WBC 8.9 RBC 4.06 L Hgb 9.9 L Hct 33.1 L MCV 81.5 MCH 24.4 L MCHC 29.9 L RDW 15.3 H Plt Count 412 MPV 9.2 Neut # (Auto) 7.8 H Lymph # (Auto) 0.6 L Bledsoe # (Auto) 0.5 Eos # (Auto) 0.0 Baso # (Auto) 0.0 Absolute Nucleated RBC 0.00 Nucleated RBC % 0.0 Sodium 132 L Potassium 3.6 Chloride 96 L Carbon Dioxide 27 Anion Gap 9.0 BUN 17 Creatinine 0.8 Estimated GFR (MDRD) 71 L Glucose 111 H Calcium 9.0 Total Bilirubin 1.2 H AST 29 ALT 23 Alkaline Phosphatase 118 Total Protein 6.9 Albumin 3.6 Globulin 3.3 Albumin/Globulin Ratio 1.1 Lipase 40 PD Medical Decision Making - ED course ED course: 71-year-old woman presenting with vomiting today and some increased weakness possibly related to dehydration. Feeling better after IV fluids and Zofran and passed a p.o. challenge. No longer weak and dizzy. Labs were generally unremarkable, her CBC was reviewed and notable for anemia but improving from last prior CBC with hemoglobin in the high eights per her friend/POA at the bedside. Departure - Departure Disposition: Home, Self Care Clinical Impression: Gastroenteritis Condition: Good Record reviewed to determine appropriate education?: Yes Instructions: ED Gastroenteritis Viral Prescriptions: Ondansetron Odt [Zofran] 4 mg TL Q6H PRN #10 tablet PRN Reason: Nausea / Vomiting Comments: You are seen tonight for gastroenteritis, I seem to feel better after a liter of IV fluids and some Zofran and passed an oral challenge. Given your history and labs there is no reason for you to need to follow a low- sodium diet. Call your doctor to arrange a follow-up appointment, make the next available appointment. In the interim, return anytime if worse or if new symptoms develop. CBC: WBC 8.9 HgB 9.9 Hct 33.1 Plt 412 CMP: Sodium 132 Potassium 3.6 Chloride 96 Carbon dioxide 27 BUN 17 Creatinine 0.8 Calcium 9.0 Bilirubin 1.2 ASt 29 ALT 23 Alk Phos 118
[2022-10-03 19:34] LABS: BASOPHILS % (AUTO) 0.3 %; EOSINOPHILS % (AUTO) 0.1 %; HCT - HEMATOCRIT 33.1 % (37.0-47.0); HGB - HEMOGLOBIN 9.9 g/dL (12.0-16.0); LYMPHOCYTES # (AUTO) 0.6 10^3/uL (1.5-3.5); LYMPHOCYTES % (AUTO) 6.9 %; MEAN CORPUSCULAR HEMOGLOBIN 24.4 pg (27.0-31.0); MEAN CORPUSCULAR HGB CONC 29.9 g/dL (32.0-36.0); MEAN CORPUSCULAR VOLUME 81.5 fL (81.0-99.0); MEAN PLATELET VOLUME 9.2 fL (7.9-10.8); MONOCYTES # (AUTO) 0.5 10^3/uL (0.0-1.0); MONOCYTES % (AUTO) 5.1 %; NEUTROPHILS # (AUTO) 7.8 10^3/uL (1.5-6.6); NEUTROPHILS % (AUTO) 87.4 %; PLT - PLATELET COUNT 412 10^3/uL (130-450); RED BLOOD COUNT 4.06 10^6/uL (4.20-5.40); RED CELL DISTRIBUTION WIDTH 15.3 % (12.0-15.0); WHITE BLOOD COUNT 8.9 x10^3/uL (4.8-10.8)
[2022-10-03 19:47] LABS: ALBUMIN 3.6 g/dL (3.2-5.5); ALBUMIN/GLOBULIN RATIO 1.1 (1.0-2.2); BILIRUBIN,TOTAL 1.2 mg/dL (0.2-1.0); CREATININE 0.8 mg/dL (0.4-1.0); POTASSIUM 3.6 mmol/L (3.5-5.0); TOTAL PROTEIN 6.9 g/dL (6.7-8.2)
[2022-10-03] MEDS ORDERED: ONDANSETRON ODT 4 MG Prepack 2 TL STA (21:08)
[2022-10-03 22:34] VITALS: BP 118/76
== END 2022-10-03 21:48 | disposition home or self-care (01) ==
LOC: ED 18:24
DX: K52.9 Noninfective gastroenteritis and colitis, unspecified (principal)
CPT/HCPCS: 36415; 80053; 83690; 85025; 87798; 96361; 96374; 99283

== ENCOUNTER 2023-04-02 14:00 | Outpatient (CLI) | payer MEDICARE, OTHER ==
--- NOTE | 2023-04-02 16:15 | DEXA Report ---
PROCEDURE: Dexa Spine and/or Hip INDICATIONS: POST MENOPAUSAL TECHNIQUE: Dual energy x-ray absorptiometry (DXA) was performed on a [employer]. Regions measur ed are the AP Spine, femoral neck, and if needed forearm. COMPARISON: None FINDINGS: Lumbar Spine: Bone Mineral Density 0.881 g/cm/cm,T score -2.5. Osteoporosis Left Femoral Neck: Bone Mineral Density 0.656 g/cm/cm, T score -2.7. Osteoporosis Left Hip: Bone Mineral Density 0.601 g/cm/cm,T score -3.2. Osteoporosis (T score greater or equal to -1.0: NORMAL) (T score from -1.1 to -2.4: OSTEOPENIA) (T score less than or equal to -2.5 to: OSTEOPOROSIS) Impression: By WHO criteria, this patient has osteoporosis. The patient is at a high-risk of fracture. Patients with diagnosis of osteoporosis or osteopenia should have regular bone mineral density assess ment. For those eligible for Medicare, routine testing is allowed once every 2 years. Testing frequ ency can be increased for patients who have rapidly progressing disease or for those who are receivin g medical therapy to restore bone mass. Reviewed by: Anca Allen MD on 04/02/2023 3:13 PM KRISTIE Approved by: Anca Allen MD on 04/02/2023 3:13 PM KRISTIE Station ID: [id number]
== END 2023-04-02 14:01 | disposition home or self-care (01) ==
LOC: DI 14:00
PROVIDERS: ATTEND Nurse Practitioner
DX: M81.0 Age-related osteoporosis without current pathological fracture (principal); Z78.0 Asymptomatic menopausal state